=== PATIENT | male | born 1975 | race Caucasian/White ===

== ENCOUNTER 2017-12-06 08:02 | Day surgery (SDC) | payer MEDICARE, MEDICAID ==
[~2017-12-06 08:02] MED LIST: AMOXICILLIN875 MG PO; BENZOYL PEROXIDE; BISACODYL RC; CARBAMAZEPINE PO; CETIRIZINE PO; CLINDAMYCIN300 MG PO; DIASTAT PEDIAT2.5 MG REC; Diastat; GLYCERIN; GLYCERIN SUPPOS1 SU4 RC; LASIX 20MG TABL20 MG PO; MUCINEX DM 30 M1 TE1 PO; NIFEREX-150 501 CA1 PO; PHENOBARBITAL100 MG PO; PRILOSEC 20MG20 MG PO; TEGRETOL 2200 MG/TA1 PO; TOPAMAX 100MG100 MG PO; TRIAMCINOLONE A15 G2 TP; [UNRECOGNIZED DRUG - OTHER] PO; [UNRECOGNIZED DRUG - OTHER] TP; phenobarbitol PO
[2017-12-06 09:19] VITALS: BP 89/59; PULSE 58; TEMP 97.4
[2017-12-06] MEDS ORDERED: TEGRETOL 2200 MG/TA1 PO (09:28)
[2017-12-06] MEDS ORDERED: [UNRECOGNIZED DRUG - OTHER] PO (09:29)
[2017-12-06] MEDS ORDERED: TOPAMAX 100MG100 M1 PO (09:29)
[2017-12-06] MEDS ORDERED: PHENOBARBITAL16.2 MG PO (09:30)
[2017-12-06] MEDS ORDERED: DEXILANT60 MG PO (09:31)
[2017-12-06] MEDS ORDERED: COLACE 100100 MG/CAP PO (09:31)
[2017-12-06] MEDS ORDERED: LASIX 20MG TABL20 MG PO (09:31)
[2017-12-06 13:00] VITALS: BP 115/56; PULSE 99
[2017-12-06 13:15] VITALS: BP 124/63; PULSE 94; TEMP 98
[2017-12-06 13:30] VITALS: BP 120/64; PULSE 91
[2017-12-06 14:25] VITALS: BP 118/66; PULSE 101; TEMP 97.6
== END 2017-12-06 13:48 | disposition home or self-care (01) ==
LOC: SDCO 08:02
DX: K04.7 Periapical abscess without sinus (principal); G80.9 Cerebral palsy, unspecified; F84.0 Autistic disorder; K21.9 Gastro-esophageal reflux disease without esophagitis; E78.5 Hyperlipidemia, unspecified; Z88.1 Allergy status to other antibiotic agents; Z88.8 Allergy status to other drugs, medicaments and biological substances
CPT/HCPCS: J0690; J1100; J2405; J2704; J3010; J7120

== ENCOUNTER 2020-11-12 00:37 | Inpatient (IN) | payer MEDICARE, MEDICAID ==
[~2020-11-12] VITALS: Ht 172.7 cm; Wt 77.3 kg
[2020-11-12] VITALS (600 sets, daily range): BP systolic 62–130; BP diastolic 51–94; PULSE 74–84; TEMP 99–101.9; O2SAT 50–100
[~2020-11-12 00:37] MED LIST changes: +COLACE 100100 MG/CAP PO; +DEXILANT60 MG PO; +PHENOBARBITAL16.2 MG PO; +TOPAMAX 100MG100 M1 PO; +[UNRECOGNIZED DRUG - OTHER] PO
[2020-11-12 01:19] LABS: HEMATOCRIT 38.9 % (42.0-52.0); MEAN CELL VOLUME 87 fl (80.0-100.0); MEAN CORPUSCULAR HEMOGLOBIN 29 pg (27.0-31.0); MEAN CORPUSCULAR HGB CONC 33 g/dl (33.0-37.0); MEAN PLATELET VOLUME 10.6 fl (7.4-10.4); PLATELET COUNT 296 K/mm3 (130-400); RED BLOOD COUNT 4.46 M/mm3 (4.20-5.60)
[2020-11-12 01:32] LABS: ALBUMIN 3.3 gm/dL (3.5-5.0); BILIRUBIN,TOTAL 0.7 mg/dL (0.0-1.0); CALCIUM 8.2 mg/dL (8.4-10.2); CREATININE, serum 0.9 (0.66-1.25); POTASSIUM 3.6 mmol/L (3.4-5.0); TOTAL PROTEIN 6.9 gm/dL (6.4-8.2)
[2020-11-12 01:44] LABS: LYMPHOCYTE 15 % (20.0-51.0); MYELOCYTE 1 % (0-0); NEUTROPHILS 81 % (42.0-75.2)
[2020-11-12 01:45] LABS: PLATELET ESTIMATE NORMAL (NORMAL); TOXIC GRANULATION PRESENT
[2020-11-12] MEDS ORDERED: PHENOBARBITAL32.4 MG PO (02:05)
[2020-11-12] MEDS ORDERED: BENZAMYCIN TP (02:08)
[2020-11-12 02:29] LABS: ARTERIAL BLD GAS O2 SATURATION 93.9 % (92-100); ARTERIAL BLOOD GAS BASE EXCESS -3.9 (-2-2); ARTERIAL BLOOD GAS PCO2 32.7 mmHg (35-45); ARTERIAL BLOOD GAS PO2 68.4 mmHg (80-100)
[2020-11-12] MEDS ORDERED: BENZAMYCIN (03:20)
[2020-11-12] MEDS ORDERED: [UNRECOGNIZED DRUG - OTHER] (03:20)
[2020-11-12] MEDS ORDERED: MELATONIN5 M1 PO (03:22)
[2020-11-12] MEDS ORDERED: ADVIL200 MG PO (03:23)
[2020-11-12] MEDS ORDERED: TYLENOL 325MG325 MG PO (03:23)
[2020-11-12] MEDS ORDERED: MILK OF MA400 MG/52 PO (03:24)
[2020-11-12] MEDS ORDERED: ROBITUSSIN100 MG/5 M PO (03:25)
[2020-11-12 09:14] LABS: MUCOUS Present /lpf; PH 5 (5-8); SQUAMOUS EPITHELIAL 0-2 /hpf; URINE APPEARANCE Hazy; URINE BACTERIA Many /hpf; URINE BILIRUBIN Negative (NEGATIVE); URINE BLOOD 1+ (NEGATIVE); URINE COLOR Amber; URINE GLUCOSE Negative (NEGATIVE); URINE KETONE Negative (NEGATIVE); URINE LEUKOCYTE ESTERASE Trace (NEGATIVE); URINE NITRATE Negative (NEGATIVE); URINE PROTEIN(semi-quant) 1+ (NEGATIVE); URINE RBC 20-50 /hpf; URINE UROBILINOGEN Negative (NEGATIVE)
[2020-11-12 09:31] LABS: COLLECTION METHOD CATHETER
[2020-11-12] MEDS ORDERED: DIASTAT PEDIAT2.5 MG RC (12:11)
--- NOTE | 2020-11-12 12:49 | NUR ---
Dr. Prather called to notify of PT fever still above 101. No new orders received. Tylenol to be given when time limit allows.
--- NOTE | 2020-11-12 13:27 | NUR ---
Dr. Prather notified of PT sustaining fever after administration of tylenol. New ORDER RECEIVED PLEASE see eMAR.
--- NOTE | 2020-11-12 19:30 | NUR ---
Received report from KHUSHBOO Vinson. Patient on 4L oxymask resting in bed. VS WNL. All medications verified and all questions answered. Will resume care at this time.
--- NOTE | 2020-11-12 19:41 | NUR ---
Report given to KHUSHBOO Carcamo.
--- NOTE | 2020-11-12 21:30 | NUR ---
Spoke with Kami, patients sister and primary caregiver. Gave status update on patient. Kami stated she is available at all hours to answer any questions regarding the patients care, as was the patients mother. Kami stated she would call throughout the night for updates but was appreciative and compliant with care.
--- NOTE | 2020-11-12 22:00 | NUR ---
Increased patient to 3L oxymask d/t SPO2 level of 91%. No shortness of breath or labored breathing noted.
[2020-11-12 22:01] LABS: PHENOBARBITAL 37 ug/mL (15-40)
--- NOTE | 2020-11-12 22:30 | NUR ---
Spoke with DANK Gupta in regards to patients recent blood pressures readings. Patient had low pressure readings of 80-90 systolic over 50-60 diastolic and maps ranging from 57 to 66. All other VS WNL. Patient alert but drowsy. Patient has order for levophed. Discussed with DANK howe she would like a LR bolus given to increase BP or to start levophed. DANK stated to start levophed and she would call surgery and discuss central line placement and call patients primary nurse back with any information. Levophed start at 2245 at 0.1mcg/kg/hr or 27.2mls/hr in peripheral line in right hand.
--- NOTE | 2020-11-12 22:30 | NUR ---
Increased patient O2 level to 4L via oxymask d/t SPO2 level of 90%. No shortness of breath or labored breathing noted.
[2020-11-13] VITALS (344 sets, daily range): BP systolic 102–136; BP diastolic 58–80; PULSE 71–125; TEMP 98.7–100.4; O2SAT 90–98
--- NOTE | 2020-11-13 00:56 | NUR ---
Called Dr. Lao and stated patient was started on levophed gtt at 0.1mcg/kg/hr or 27.2mls/hr d/t soft presssures and decreased MAP and would need a central line. Stated levophed was running in a peripheral line in patients left forearm. Nurse stated most recent pressure of 123/71 with a map of 89. Nurse stated pressures have been WNL with systolic in the 120-130s and diastolic in 78-80s since starting levophed gtt. stated he is fine with levophed gtt running in peripheral line for now d/t the rate being low and will come by in the morning to place a central line.
--- NOTE | 2020-11-13 04:00 | NUR ---
administered 650mg of tylenol d/.t temperature of 100.1 taken axillary.
--- NOTE | 2020-11-13 04:08 | NUR ---
Spoke with DANK Gupta and gave update on patient status. SPO2 dropped into the low 80s and patient becoming tachycardic in the 120s, received orders for ABG draw. All other VS WNL
[2020-11-13 04:24] LABS: ARTERIAL BLD GAS O2 SATURATION 92.4 % (92-100); ARTERIAL BLD GAS TCO2 CT 19.5; ARTERIAL BLOOD GAS BASE EXCESS -3.3 (-2-2); ARTERIAL BLOOD GAS HCO3 18.7 meq/L (22-26); ARTERIAL BLOOD GAS PO2 59.5 mmHg (80-100); ARTERIAL BLOOD GAS pH 7.47 (7.35-7.45)
--- NOTE | 2020-11-13 04:28 | NUR ---
Nurse noted patient had pulled on NG tube and dislodged it. Nurse reinserted NG tube to previous position and placed orders for xray to confirm placement.
--- NOTE | 2020-11-13 04:30 | NUR ---
Called radiology and notified of order for xray to verify placement for NG tube.
--- NOTE | 2020-11-13 04:31 | NUR ---
Called DANK Gupta and stated results of patients recent ABG draw. Increased patients o2 level to 8L via oxymask. Patient sating at 97% currently. No shortness of breath or labored breathing noted. Patient has intermittent coughing fits and is unable to cough up secretons.
[2020-11-13 05:23] LABS: HEMATOCRIT 40.4 % (42.0-52.0); HEMOGLOBIN 13.3 g/dl (13.5-18.0); MEAN CELL VOLUME 89 fl (80.0-100.0); MEAN CORPUSCULAR HEMOGLOBIN 29 pg (27.0-31.0); MEAN CORPUSCULAR HGB CONC 33 g/dl (33.0-37.0); MEAN PLATELET VOLUME 10.5 fl (7.4-10.4); PLATELET COUNT 371 K/mm3 (130-400); RED BLOOD COUNT 4.52 M/mm3 (4.20-5.60); REDCELL DISTRIBUTION WIDTH-CV 14.4 % (11.5-14.5)
--- NOTE | 2020-11-13 05:27 | NUR ---
Spoke with VLADIMIR revenue liaison physcian and stated patient had pulled NG tube out, nurse reinserted and got orders for xray for placement verification. Provider noted that he would read xray and get back to nurse.
[2020-11-13 05:36] LABS: ALBUMIN 2.9 gm/dL (3.5-5.0); BILIRUBIN,TOTAL 0.7 mg/dL (0.0-1.0); CREATININE, serum 0.53 (0.66-1.25); POTASSIUM 3.2 mmol/L (3.4-5.0); TOTAL PROTEIN 6.2 gm/dL (6.4-8.2)
--- NOTE | 2020-11-13 05:45 | NUR ---
Spoke with patients mom, Shraddha, who gave code for status update on patient. Nurse updated Shraddha on patients need to increase oxygen level d/t spo2 level in the low 80s and results of ABG, nurse also stated patients fever is back and received tylenol for fever. Shraddha stated she would call later throughout the day.
[2020-11-13 06:03] LABS: BAND 2 % (0-10); LYMPHOCYTE 2 % (20.0-51.0); NEUTROPHILS 93 % (42.0-75.2)
[2020-11-13 06:04] LABS: PLATELET ESTIMATE NORMAL (NORMAL)
--- NOTE | 2020-11-13 06:45 | NUR ---
REPORT RECEIVED FROM TRACEE CUELLO. PT HAS NG TUBE FOR MEDS. PT IN DROPLET ISOLATION FOR COVID. PT HAS LEVO RUNNING AT 0.04MCG/KG/MIN. AWAITING FOR TO PLACE CENTRAL LINE. WILL CONTIUE TO MONITOR.
--- NOTE | 2020-11-13 09:00 | NUR ---
CENTRAL LINE PLACE BY . CHEST XRAY DONE. STATES LINE OK TO USE. NOTED PTS LEFT HAND AND ARM ARE COOLER AND BLUISH IN COLOR COMPARED TO RIGHT. PULSES STILL PALPABLE. IV'S DRAW BLOOD AND FLUSH WELL. NOTED.
--- NOTE | 2020-11-13 11:15 | NUR ---
EVALUATED PT. OXYMASK TURNED DOWN TO 6L. LR RATE CHANGED TO 75. KCL REPLACEMENT ORDERED. TYPE AND SCREEN DRAWN FOR CONVELESCENT PLASMA. SISTER HIEU CALLED UPDATED AND CONSENT RECEIVED FOR PLASMA.
--- NOTE | 2020-11-13 12:30 | NUR ---
Chaplain patricio for patient while standing outside of door.
--- NOTE | 2020-11-13 14:07 | NUR ---
SOCIAL WORK CALLED TO HELP WITH CLARIFICATION OF DPOA AND DECISION MAKER FOR PT.
--- NOTE | 2020-11-13 15:02 | NUR ---
HILARIA Castaneda) called co-guardian Ariellapatsy Castaneda (P# [phone]) due to patient's current status. Patient lives at a [facility] on [address] in [place], [place]. Patient receives 24/7 care and assistance with activities of daily living and requires a wheelchair for mobility needs. Patient has been assigned co-guardians Ariella and Shraddha. Paperwork is on file. Patient's PCP is Dr. Prather, and he uses [facility] for medications. Plan for [facility]. Due to current status, social work will continue to assess for plan feasibility. Ariella stated concerns about patient being transferred to the medical floor and not receiving constant care and supervision. Concerns were relayed to arnulfo's RN. There were no other questions or concerns at this time. Social work will continue to follow.
[2020-11-14] VITALS (587 sets, daily range): BP systolic 103–128; BP diastolic 61–94; PULSE 75–108; TEMP 98.2–103.1; O2SAT 89–99
[2020-11-14 05:51] LABS: BASO % 0.1 % (0.0-2.0); GRAN # 6.4 (1.4-6.5); GRAN % 86.8 % (42.2-75.2); HEMOGLOBIN 11.4 g/dl (13.5-18.0); LYMPH # 0.7 (1.2-3.4); LYMPH % 9.2 % (20.0-51.0); MEAN CELL VOLUME 88 fl (80.0-100.0); MEAN CORPUSCULAR HEMOGLOBIN 29 pg (27.0-31.0); MEAN CORPUSCULAR HGB CONC 33 g/dl (33.0-37.0); MEAN PLATELET VOLUME 10.6 fl (7.4-10.4); MONO # 0.2 (0.1-0.6); PLATELET COUNT 301 K/mm3 (130-400); REDCELL DISTRIBUTION WIDTH-CV 14.4 % (11.5-14.5)
[2020-11-14 05:54] LABS: HEMATOCRIT 34.4 % (42.0-52.0)
[2020-11-14 06:09] LABS: ALBUMIN 2.3 gm/dL (3.5-5.0); BILIRUBIN,TOTAL 0.6 mg/dL (0.0-1.0); CALCIUM 7.9 mg/dL (8.4-10.2); CREATININE, serum 0.41 (0.66-1.25); POTASSIUM 3.6 mmol/L (3.4-5.0); TOTAL PROTEIN 5.3 gm/dL (6.4-8.2)
--- NOTE | 2020-11-14 07:00 | NUR ---
RECEIVED REPORT FROM DELORES CUELLO. ASSUMED CARE OF PT AT THIS TIME.
--- NOTE | 2020-11-14 09:23 | NUR ---
LEFT WRIST PERIPHERAL IV REMOVED. REDNESS/SWELLING NOTED TO SITE.
--- NOTE | 2020-11-14 17:37 | NUR ---
ATTEMPTED TO CALL REPORT AT THIS TIME. RN STATES SHE IS UNABLE TO TAKE REPORT AT THIS TIME. CURRENTLY WORKING ON ANOTHER ADMISSION.
--- NOTE | 2020-11-14 18:15 | NUR ---
REPORT CALLED TO KHUSHBOO WHITE. PT TO BE TRANSFERRED AFTER CHANGE OF SHIFT AT 1900 WHEN STAFF IS AVAILABLE TO ASSIST WITH TRANSPORT.
[2020-11-15] VITALS (349 sets, daily range): BP systolic 93–124; BP diastolic 51–73; PULSE 82–103; TEMP 98–103; O2SAT 97–100
[2020-11-15 07:21] LABS: BASO % 0.2 % (0.0-2.0); GRAN # 7.4 (1.4-6.5); GRAN % 88.8 % (42.2-75.2); HEMOGLOBIN 10.5 g/dl (13.5-18.0); LYMPH # 0.7 (1.2-3.4); LYMPH % 7.8 % (20.0-51.0); MEAN CELL VOLUME 90 fl (80.0-100.0); MEAN CORPUSCULAR HEMOGLOBIN 30 pg (27.0-31.0); MEAN CORPUSCULAR HGB CONC 33 g/dl (33.0-37.0); MEAN PLATELET VOLUME 10.7 fl (7.4-10.4); MONO # 0.2 (0.1-0.6); MONO % 2.5 % (1.7-9.3); PLATELET COUNT 372 K/mm3 (130-400); RED BLOOD COUNT 3.51 M/mm3 (4.20-5.60); REDCELL DISTRIBUTION WIDTH-CV 14.4 % (11.5-14.5)
[2020-11-15 07:27] LABS: HEMATOCRIT 31.6 % (42.0-52.0)
[2020-11-15 07:39] LABS: ALBUMIN 2.3 gm/dL (3.5-5.0); BILIRUBIN,TOTAL 0.5 mg/dL (0.0-1.0); CALCIUM 7.7 mg/dL (8.4-10.2); CREATININE, serum 0.4 (0.66-1.25); PHOSPHOROUS 1.2 mg/dL (2.5-4.5); POTASSIUM 3.8 mmol/L (3.4-5.0); TOTAL PROTEIN 5.4 gm/dL (6.4-8.2)
[2020-11-15 07:46] LABS: PRE ALBUMIN 6.6 mg/dL (17.6-36.0)
[2020-11-15 11:13] LABS: ARTERIAL BLD GAS O2 SATURATION 90.9 % (92-100); ARTERIAL BLOOD GAS BASE EXCESS -4.5 (-2-2); ARTERIAL BLOOD GAS HCO3 20.8 meq/L (22-26); ARTERIAL BLOOD GAS PCO2 39.1 mmHg (35-45); ARTERIAL BLOOD GAS PO2 60.6 mmHg (80-100); ARTERIAL BLOOD GAS pH 7.34 (7.35-7.45)
--- NOTE | 2020-11-15 11:37 | NUR ---
This nurse in for pt assessment and medications. Pt laying in bed, not responding to any verbal stimuli, no response to sternal rub. Pt on 5L OM, has NG tube in place, tube feeding at 30ml, q4 200ml flushes. Pt has vazquez in place, emptied w/ correction lieutenant, draining dark kip/tea colored urine. Pt has triple rt subclavian central line, all ports flush well, good blood return. VSS. Pt has increased resp rate, WOB and paradoxical breathing. Pt started grunting as well as the morning went on. This nurse notified Dr. Schaefer to assess patient. Dr. Schaefer stated to have pt moved to ICU and stat ABGs. House notified, KHUSHBOO Sanches ICU notified. Pt was moved to ICU 3. KHUSHBOO Vinson called for report, updates given, all questions answered.
--- NOTE | 2020-11-15 11:38 | NUR ---
Patient arrives to ICU via bed from medical floor. Snoring resp with OM on at 6L. O2 up to 15 L\OM and jaw thrust used to open airway. Anesthesia here to intubate patient. See MAR for medications used. 8.0 tube placed at 25cm at teeth. + color change and BS heard by RT, condensation in tube.
--- NOTE | 2020-11-15 11:45 | NUR ---
SPOKE WITH DR BRINK. HE WILL NOTIFY DR. MATTA AND HE ENTERED VENT ORDERS TO USE IN THE MEANTIME.
--- NOTE | 2020-11-15 11:50 | NUR ---
KHUSHBOO Espinoza called for report on patient now in room 3 of ICU. updates received of mornings events. Care assumed at this time.
--- NOTE | 2020-11-15 12:00 | NUR ---
PT LYING IN BED DOES NOT APPEAR TO BE ANY DISTRESS. VITALS ARE WNL. PULSES ARE PALPABLE. PUPILS ARE EQUAL, ROUND AND REACTIVE. LUNGS SOUNDS AUSCULATED IN ALL FIELD. BOWEL SOUNDS ARE PRESENT. PT DOES NOT OPEN EYES TO PAINFUL STIMULI.
--- NOTE | 2020-11-15 15:41 | NUR ---
fruit harvest worker assisted with completion of physician documentation for courts to rule on providing guardian's expanded rights for a DNR/DNI and to extubate patient. Worker met with Dr Schaefer and spoke with Dr Prather and obtained verbal permission to incude their recent progress notes to accompany court document and provide to guardian, Ariella Castaneda, to provide to Judge Lozano. Worker also obtained verbal permission to release records to Ariella Castaneda, from Ariella Castaneda for court purposes. Ariella stated that she spoke with Judge Lozano and has a zoom meeting tonirineo. Ariella states shes will moss picker documents this evening after Dr Velazquez has signed document. Worker collaborated with Adeel, Risk Management, and patient's nurse regarding the above information.
[2020-11-15 16:03] LABS: ARTERIAL BLD GAS O2 SATURATION 99.2 % (92-100); ARTERIAL BLD GAS TCO2 CT 18.5; ARTERIAL BLOOD GAS BASE EXCESS -5.1 (-2-2); ARTERIAL BLOOD GAS HCO3 17.7 meq/L (22-26); ARTERIAL BLOOD GAS PCO2 26.1 mmHg (35-45); ARTERIAL BLOOD GAS pH 7.45 (7.35-7.45)
--- NOTE | 2020-11-15 16:53 | NUR ---
PT IS FIGHTING VENTILATOR, COUGHING AND CHEWING ON TUBE. PT IS NOT GETTING TIDAL VOLUMES SET BY RT. DR. MATTA CONTACED ABOUT PATIENT'S RESTLESSNESS AND ALSO MAP BEING 59. ORDERS RECEIVED FOR LR BOLUS. BOLUS STARTED ALONG WITH LEVOPHED AND FENTANYL DRIP STARTED ORDERED.
[2020-11-15 22:58] LABS: COLLECTION METHOD IN
[2020-11-15 23:03] LABS: MUCOUS Present /lpf; PH 5 (5-8); SQUAMOUS EPITHELIAL None Seen /hpf; URINE APPEARANCE Hazy; URINE BACTERIA Rare /hpf; URINE BILIRUBIN Negative (NEGATIVE); URINE BLOOD Negative (NEGATIVE); URINE COLOR Yellow; URINE GLUCOSE Negative (NEGATIVE); URINE KETONE Negative (NEGATIVE); URINE LEUKOCYTE ESTERASE Negative (NEGATIVE); URINE NITRATE Negative (NEGATIVE); URINE PROTEIN(semi-quant) 1+ (NEGATIVE); URINE UROBILINOGEN Negative (NEGATIVE)
--- NOTE | 2020-11-15 23:05 | NUR ---
TUBE FEEDING INCREASE TO 45, RESIDUAL AMOUNT 25,
[2020-11-16] VITALS (352 sets, daily range): BP systolic 96–114; BP diastolic 48–65; PULSE 92–137; TEMP 100–102.9; O2SAT 55–100
--- NOTE | 2020-11-16 00:08 | NUR ---
TUBE FEEDING CHANGE IN RATE FROM 30 MLS TO 45 MLS. RESIDUAL IS LOW
--- NOTE | 2020-11-16 02:40 | NUR ---
RESPIRATORY GOES INTO CHECK ON PATIENT'S STATUS WITH ET TUBE AND VENTILATOR, ALSO FIND PATIENT TO HAVE ELEVATED TEMP 102.8. MEDS ADMINISTERED BY 0310, AT 0335 TEMP DOWN TO 102.1 WILL KEEP OBSERVING
[2020-11-16 05:26] LABS: BASO % 0.3 % (0.0-2.0); GRAN # 10.1 (1.4-6.5); GRAN % 88.2 % (42.2-75.2); LYMPH # 0.9 (1.2-3.4); LYMPH % 7.6 % (20.0-51.0); MEAN CELL VOLUME 91 fl (80.0-100.0); MEAN CORPUSCULAR HGB CONC 33 g/dl (33.0-37.0); MONO # 0.3 (0.1-0.6); MONO % 2.9 % (1.7-9.3); PLATELET COUNT 460 K/mm3 (130-400); RED BLOOD COUNT 3.34 M/mm3 (4.20-5.60); REDCELL DISTRIBUTION WIDTH-CV 14.8 % (11.5-14.5)
[2020-11-16 05:27] LABS: HEMATOCRIT 30.4 % (42.0-52.0); HEMOGLOBIN 9.9 g/dl (13.5-18.0); MEAN CORPUSCULAR HEMOGLOBIN 30 pg (27.0-31.0)
[2020-11-16 05:33] LABS: ARTERIAL BLD GAS O2 SATURATION 98.6 % (92-100); ARTERIAL BLD GAS TCO2 CT 22.8; ARTERIAL BLOOD GAS BASE EXCESS -2.2 (-2-2); ARTERIAL BLOOD GAS HCO3 21.7 meq/L (22-26); ARTERIAL BLOOD GAS PCO2 34.2 mmHg (35-45); ARTERIAL BLOOD GAS PO2 113.4 mmHg (80-100); ARTERIAL BLOOD GAS pH 7.42 (7.35-7.45)
[2020-11-16 05:39] LABS: ALBUMIN 2.1 gm/dL (3.5-5.0); BILIRUBIN,TOTAL 0.4 mg/dL (0.0-1.0); CALCIUM 6.9 mg/dL (8.4-10.2); CREATININE, serum 0.37 (0.66-1.25); MAGNESIUM 1.9 mg/dL (1.6-2.3); POTASSIUM 3.7 mmol/L (3.4-5.0)
--- NOTE | 2020-11-16 06:31 | NUR ---
PATIENT PULSE RATE ELEVATED PATIENT OVERIDING VENT MEDS RESUMED FENT AT 50 MCQ/HR AND PROPOFOLOL 35 MCQ/KG/MIN
--- NOTE | 2020-11-16 09:40 | NUR ---
SW staffed with nurse, reports family called and obtained the Care Support Representative permission on form, and documented care. Will email form. Pallative was notified of decision. Awaiting form.
--- NOTE | 2020-11-16 10:03 | NUR ---
fishing worker spoke with patient's guardian, Ariella Castaneda. Ariella stated she and her mother obtained court approval to extubate patient and let end of life happen. We are awaiting court documents. Ariella will email them to worker, when she obtains. Worker offered zoom meeting, however, Ariella declines and states that she, her mother and sister do not want to see patient during this time. Ariella was very appreciative of our zoom offer. Ariella stated that [facility] and they should be called upon . Worker offered emotional support to Jl and her family. Worker collaborated with patient's nurse, Alisson, regarding the above information.
--- NOTE | 2020-11-16 12:21 | NUR ---
Chaplain patricio for patient through the door.
--- NOTE | 2020-11-16 12:46 | NUR ---
Guardian, Ariella, contacted worker and emailed court approval for extubation to allow patient to naturally. Worker provided the court documents to patient's nurse, who will notify the physician. Ariella states she spoke with her mother and sister and that she is the only family member that would like to talk to patient, via telephone and nursing will assist with this request. Worker offered emotional support to Ariella.
--- NOTE | 2020-11-16 12:48 | NUR ---
1223- PALLIATIVE EXTUBATION PERFORMED BY RT WITH THIS RN PRESENT. 1247- THIS NURSE BEDSIDE NOTES A SEIZE IN VITAL SIGNS. NO HEART SOUNDS PRESENT. 1248- DR. POOLE NOTIFIED
--- NOTE | 2020-11-16 13:57 | NUR ---
Patient . [facility] confirmed patient is not a candidate to donate and cleared patient for discharge to home. Worker contacted [facility] to pick up truck driver body.
== END 2020-11-16 14:15 | disposition expired | DRG 871 ==
LOC: COL.ER 00:37 → ICU 03:51 → MEDICAL 11-14 22:13 → ICU 11-15 10:46
PROVIDERS: Emergency Medicine; Internal Medicine Pulmonary Disease; Nurse Practitioner Family; Physician Assistant; Surgery; ADMIT Internal Medicine
PROC: XW033E5 Introduction of Remdesivir Anti-infective into Peripheral Vein, Percutaneous Approach, New Technology Group 5 (ICD-10-PCS; 2020-11-12)
PROC: 0BH17EZ Insertion of Endotracheal Airway into Trachea, Via Natural or Artificial Opening (ICD-10-PCS; principal; 2020-11-15)
PROC: 5A1945Z Respiratory Ventilation, 24-96 Consecutive Hours (ICD-10-PCS; 2020-11-15)
DX: A41.89 Other specified sepsis (principal); U07.1 COVID-19; J96.01 Acute respiratory failure with hypoxia; J12.82 Pneumonia due to coronavirus disease 2019; N39.0 Urinary tract infection, site not specified; F72 Severe intellectual disabilities; R65.20 Severe sepsis without septic shock; B96.1 Klebsiella pneumoniae [K. pneumoniae] as the cause of diseases classified elsewhere; I95.9 Hypotension, unspecified; Z66 Do not resuscitate; Z51.5 Encounter for palliative care; E87.6 Hypokalemia; E83.39 Other disorders of phosphorus metabolism; G80.9 Cerebral palsy, unspecified; G40.909 Epilepsy, unspecified, not intractable, without status epilepticus; R13.10 Dysphagia, unspecified; E78.5 Hyperlipidemia, unspecified
CPT/HCPCS: 99222-AI; 99233-AI; 99239; J0330; J0692; J0696; J1100; J1650; J1885; J2060; J2270; J2704; J3010; J3370; J3480; J7030; J7050; J7060; J7120; Q9967